=== PATIENT | female | born 2005 | race Caucasian/White ===

== ENCOUNTER 2025-02-13 00:53 | Emergency (ER) | payer OTHER, SELFPAY ==
[2025-02-13 00:54] VITALS: BMI 20.6
--- NOTE | 2025-02-13 01:01 | EDNOTE_ITS ---
ED Female Urogenital RME/HPI General Chief complaint: Urogenital-Female Stated complaint: RECTAL PAIN AND UTI Arrival date/time: 02/13/25 00:53 RME / HPI RME / HPI Narrative: Dr. Morales Template (02/13/25) This section includes all my notes and documentations, including HPI, PE, and ED course. Andrade Morales MD HPI: 19 y/o female with Hx of Hemorrhoids presents to ED c/o dysuria, urinary frequency and urgency, vomiting, and lower back pain x about 2 weeks. Denies any fever. Rectal pain feels same as when she was and had hemorrhoids. Denies possibility of and reports she is currently on her period. No other complaints. ROS: All negative except as documented in HPI. Physical Exam: General: Alert and oriented. No acute distress when remaining still. Eyes: Conjunctivae and lids clear. ENT: No nasal congestion. Neck: Supple. Heart: RRR. Lungs: No respiratory distress. Good air movement. No rhonchi, wheezing, rales. Abdomen: Soft with equivocal tenderness, difficult to localize. Normal bowel sounds. No distension. No rebound or guarding. Back: No CVA tenderness. Skin: Warm and dry. Neuro: Alert and oriented X 3. Rectal: Obvious external hemorrhoids noted, varying size and shape, non thrombosed. 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 Abdomen/Pelvis CT report is pending. Blood tests and urine tests unremarkable. Treatment here included: IV fluid, Toradol, Zofran. Prior to return of all diagnostic test results, patient left AMA. Andrade Morales MD Last Menstrual Period: 02/13/25 EDC: 11/20/25 Related Data Previous Rx's ?Medication ?Instructions ?Recorded cephalexin 500 mg capsule 500 mg PO QID #40 caps 04/16 doxycycline hyclate 100 mg capsule 100 mg PO BID #20 c aps 04/16/22 doxycycline hyclate 100 mg capsule 100 mg PO BID #14 c aps 05/21/22 acetaminophen 325 mg tablet 650 mg (2 x 325 mg) PO Q4H #20 tabs 11/16/22 (Tylenol) diphenhydramine HCl 25 mg capsule 25 mg PO TID PRN all ergy symptoms 11/16/22 (Benadryl) #20 caps loratadine 10 mg tablet 10 mg PO QDAY #30 tabs 11/16 hydrocortisone acetate 25 mg 25 mg NJ BID 14 days #28 ea 02/13/25 rectal suppository (Anusol-HC) Allergies Allergy/AdvReac Type Severity Reaction Status Date / Time latex Allergy BURN Verified 02/13/25 00:54 Review of Systems Review of Systems Systems Reviewed: All systems reviewed, normal except as documented Past Medical History Past Medical History GASTROINTESTINAL: Positive Hemorrhoids Surgical History SURGICAL: Positive Section Social History SMOKING STATUS: Current every day smoker ED Exam Narrative Physical exam: Refer to HPI above Course Quality Measures none Orders Category Date Time Status Saline [Insert IV] NOW Care 02/13/25 01:[address] abdomen pelvis wo con Stat Exams 02/13/25 01:47 Taken Amylase Stat Lab 02/13/25 02:00 Completed Bilirubin,Direct Stat Lab 02/13/25 02:00 Completed CBC Stat Lab 02/13/25 02:00 Completed CMP [Comprehensive Metabolic Panel] Stat Lab 02/13/25 02:00 Completed HCG Qualitative,Urine Stat Lab 02/13/25 01:20 Completed Lipase Stat Lab 02/13/25 02:00 Completed Magnesium Stat Lab 02/13/25 02:00 Completed UA, C/S IF [Urinalysis, C/S if Indicated] Stat Lab 02/13/25 01:20 Completed Ketorolac Inj [Toradol Inj] Med 02/13/25 01:46 Discontinued 30 mg IVP X1 ONE Ondansetron Inj [Zofran Inj] Med 02/13/25 01:46 Discontinued 4 mg IVP X1 ONE Sodium Chloride 0.9% 1000 ml [Ns] 1,000 ml Med 02/13/25 01:46 Discontinued IV 999 mls/hr Vital Signs Vital signs: Vital Signs Temperature 98.6 F 02/13/25 01:08 Pulse Rate 86 02/13/25 01:08 Respiratory Rate 19 02/13/25 01:08 Blood Pressure 113/85 H 02/13/25 01:08 Pulse Oximetry (%) 96 02/13/25 01:08 Oxygen Delivery Method Room Air 02/13/25 01:08 Urogenital - Female MDM Narrative MDM Narrative:: Scribe Attestation: I, Kiesha Marley, am scribing for and in the presence of Dr. Morales. Provider Notation: Although this document has been carefully reviewed, there may still be some phonetic and other typographical errors.? These errors are purely grammatical due to imperfections in the software program and should not be construed in any way to? compromise the substance of the patient's medical care during this visit. 19 y/o female with Hx of Hemorrhoids presents to ED c/o dysuria, urinary frequency and urgency, vomiting, and right lower back pain x about 2 weeks. Denies any fever. In addition, patient also complains of pain to the anal area. She states that it feels that same as when she was and had hemorrhoids. Denies possibility of and reports she is currently on her period. No other complaints. Patient data External records reviewed:: [facility] previous records (Reviewed prior ED records from 05/16/23. Patient was seen for Normal ear exam.) Clinical information provided by:: patient Social determinants that could affect healthcare access:: none Patient has the following chronic illnesses:: Hemorrhoids How is presenting disease/condition affected by chronic disease/condition?: exacerbated by Evaluation data The following diagnostics were reviewed and interpreted by me:: lab results Lab and/or radiology exams considered but not ordered:: None Interpretation Summary: Patient left AMA prior to complete diagnostic test results. Medications / Prescriptions Medications or Prescriptions considered but not ordered:: None Medication administrations:: Medication Administration History Discontinued Medications Sodium Chloride (Ns) 1,000 mls @ 999 mls/hr IV .Q1H1M ONE Stop: 02/13/25 02:46 Last Infusion: 02/13/25 03:05 Dose: Infused Documented By: Admin: 02/13/25 01:58 Dose: 999 mls/hr Documented By: SUSY Ketorolac Tromethamine (Ketorolac Inj 30 Mg/Ml Vial) 30 mg IVP X1 ONE Stop: 02/13/25 01:47 Last Admin: 02/13/25 01:57 Dose: 30 mg Documented By: SUSY Ondansetron HCl (Ondansetron Inj 2 Mg/Ml Inj 2 Ml) 4 mg IVP X1 ONE; Protocol Stop: 02/13/25 01:47 Last Admin: 02/13/25 01:56 Dose: 4 mg Documented By: SUSY IV fluid, Toradol, Zofran. Consultations Consultation(s) initiated? (list below): No Diagnosis Urogenital Female Differential Diagnosis: urinary tract infection, bacterial vaginosis, trichomoniasis, cervicitis, ovarian cyst, vaginitis, ruptured ovarian cyst, cyst of Bartholin's gland, cystitis, dysmenorrhea and other (Hemorrhoid, Anal fissure) Most likely diagnosis given after review of the tests above:: Patient left AMA prior to complete diagnostic test results. Admission Indicated Admission indicated?: not indicated Explain why admission is indicated or not indicated:: Patient left AMA prior to complete diagnostic test results. Admission Request Was there a request for admission?: No Disposition Plan Disposition Plan: other (specify) (Patient left AMA prior to complete diagnostic test results.) Discharge Plan Plan Patient Disposition: Left Against Medical Advice Prescriptions/Referrals Prescriptions/Med Rec: New hydrocortisone acetate [Anusol-HC] 25 mg suppository 25 mg NJ BID 14 Days Qty: 28 0RF No Action cephalexin 500 mg capsule 500 mg PO QID Qty: 40 0RF doxycycline hyclate 100 mg capsule 100 mg PO BID Qty: 20 0RF doxycycline hyclate 100 mg capsule 100 mg PO BID Qty: 14 0RF diphenhydramine HCl [Benadryl] 25 mg capsule 25 mg PO TID PRN (Reason: allergy symptoms) Qty: 20 0RF loratadine 10 mg tablet 10 mg PO QDAY Qty: 30 0RF acetaminophen [Tylenol] 325 mg tablet 650 mg PO Q4H Qty: 20 0RF Referrals: No Primary/Family,Physician [Primary Care Provider] - In 1 week Problem List Clinical Impression: Dysuria, Abdominal pain, Hemorrhoids Patient/Caregiver Discharge Instructions Print Language: Azeri
[2025-02-13 01:08] VITALS: BP 113/85; PULSE 86; RESP 19; TEMP 37; O2SAT 96
[2025-02-13 01:25] LABS: Collection Type, Urine Clean Catch
[2025-02-13 01:34] LABS: Bilirubin,Urine Negative (Negative); Blood,Urine 3+ (Negative); Clarity,Urine Clear (Clear/Hazy); Color,Urine Yellow (Lt Yel-Yel); Culture Indicated,Urine Not Indicated; Glucose, Urine Negative (Negative); HCG Qualitative,Urine Negative; Ketones,Urine Negative (Negative); Leukocyte Esterase,Urine Negative (Negative); Nitrite,Urine Negative (Negative); PH,Urine 6.5 (5.0-7.0); Protein,Urine Negative (Neg - Trace); RBC,Urine 16 /hpf (0-3); Specific Gravity,Urine 1.024 (1.001-1.035); Squamous Epithelial Cell,Urine 1 /hpf (0-5); Urobilinogen,Urine Negative mg/dL (0.0-1.0); WBC,Urine 4 /hpf (0-5)
--- NOTE | 2025-02-13 01:47 | XR_ITS ---
Examination: CT abdomen and pelvis without contrast. Coronal 3-D reconstructions. Sagittal 2-D reconstructions. Date and time of exam:February 13, 2025 0315 hours INDICATIONS: Generalized abdominal pain today CTDI: vol (mGy): 5 DLP: (mGycm): 277 Technique: Axial images of the abdomen have been obtained, 3 mm slice thickness Intravenous contrast material has not been administered. Low dose protocols were performed. One or more of the following dose reduction techniques were used; automated exposure control, adjustment of the mA and/or KV according to patient size, use of iterative reconstruction technique. Findings: No focal liver or splenic lesions No gallstones No pancreatic or adrenal mass No renal or ureteral calculi, no hydronephrosis Normal appendix Small lymph nodes in the mesentery No bowel obstruction Retroverted uterus Bladder intact Osseous structures intact IMPRESSION: Normal appendix No renal or ureteral calculi, no hydronephrosis No bowel obstruction or diverticulitis
[2025-02-13] MEDS: ONDANSETRON INJ 2 MG/ML INJ 2 ML 4 MG IVP (01:56)
[2025-02-13] MEDS: KETOROLAC INJ 30 MG/ML VIAL IVP (01:57)
[2025-02-13] MEDS: SODIUM CHLORIDE 0.9% 1000 ML 1,000 ML 999 ML IV (01:58)
[2025-02-13 02:36] LABS: Basophils # (Auto) 0.1 Thou/mm3 (0.0-0.2); Basophils % (Auto) 1 % (0-2.5); Eosinophils % (Auto) 12 % (0-10); Hematocrit 38.7 % (36.0-46.0); Immature Granulocytes % (Auto) 0 % (0-0); Immature Granulocytes Auto 0.01 Thou/mm3 (0.00-0.00); Lymphocytes # (Auto) 3.5 Thou/mm3 (1.0-4.8); Lymphocytes % (Auto) 43 % (10-50); Mean Corpuscular HGB Conc 36.2 g/dl (31.0-37.0); Mean Corpuscular Hemoglobin 32.3 pg (25.0-35.0); Mean Corpuscular Volume 89 fL (80-100); Monocytes # (Auto) 0.7 Thou/mm3 (0.0-0.8); Monocytes % (Auto) 8 % (0-12); Neutrophils % (Auto) 36 % (37-80); Nucleated Red Blood Cell % 0 /100 WBC (0); Platelet Count 321 Thou/mm3 (140-440); RDW Standard Deviation 39.5 fL (36.4-46.3); Red Blood Count 4.33 Miln/mm3 (4.00-5.20); White Blood Count 8.2 Thou/mm3 (3.6-11.0)
[2025-02-13 03:17] LABS: Alanine Aminotransferase 10 U/L (10-49); Albumin, Serum 4.6 gm/dL (3.5-5.0); Albumin/Globulin Ratio 1.8 (1.2-2.2); Alkaline Phosphatase 93 U/L (46-116); Amylase 79 U/L (30-118); Anion Gap 11 (7-16); Aspartate Amino Transferase 21 U/L (0-34); BUN/Creatinine Ratio 8 Ratio (12-20); Bilirubin,Direct < 0.1 mg/dL (0.0-0.3); Bilirubin,Total 0.2 mg/dL (0.3-1.2); Blood Urea Nitrogen 6 mg/dL (9-23); Calcium 8.8 mg/dL (8.3-10.6); Calcium (Corrected) 8.8 mg/dL (8.5-10.1); Carbon Dioxide 26.8 mMol/L (20.0-31.0); Chloride 106 mMol/L (98-107); Creatinine (Component) 0.8 mg/dL (0.6-1.3); Globulin 2.6 gm/dL (2.3-3.5); Glucose 82 mg/dL (74-106); Lipase 30 U/L (12-53); Magnesium 1.9 mg/dL (1.6-2.6); Osmolality,Calculated 283 (275-295); Potassium 3.8 mMol/L (3.4-5.1); Sodium 144 mMol/L (136-145); Total Protein 7.2 gm/dL (5.7-8.2); eGFR > 60 See Note
--- NOTE | 2025-02-13 04:00 | PC.NURSE ---
PATIENT SIGNED AMA FORM DUE TO NOT WANTING TO WAIT FOR RESULTS. PATIENT STATED, SHE HAD A NO CHILDCARE AND NEEDED TO GO HOME AND SHE WOULD GO TO PCP TOMORROW. PROVIDER DR. BROOKS WAS NOTIFIED.
--- NOTE | 2025-02-13 04:17 | PRELIM_ITS ---
CT scan of the abdomen and pelvis without intravenous contrast (axial sections with sagittal and coronal reformats) February 13, 2025 at 0315 hours Clinical History: Abdominal pain. Comparison: No prior study is available for comparison. Findings: The lung bases are clear. The gallbladder is contracted. The liver, pancreas, spleen, kidneys and adrenals are unremarkable on this noncontrast study. No evidence of bowel obstruction. The appendix is within normal limits (images [id number]). A moderate amount of fecal material is present in the colon. There are multiple prominent mesenteric lymph node. The urinary bladder is unremarkable. There is no free fluid or free air. The osseous structures are unremarkable. Impression: No evidence of appendicitis, bowel obstruction, free air or abscess. Multiple prominent mesenteric lymph node. Recommend clinical correlation and follow-up. Report Electronically Signed By: David Banks 02/13/2025 4:17:31 AM [EST]
== END 2025-02-13 04:02 | disposition left against medical advice (07) ==
PROVIDERS: Emergency Provider Emergency Medicine
DX: K64.4 Residual hemorrhoidal skin tags (principal); R10.84 Generalized abdominal pain; R30.0 Dysuria; Z53.29 Procedure and treatment not carried out because of patient's decision for other reasons
CPT/HCPCS: 36415; 74176; 80053; 81001; 81025; 82150; 82248; 83690; 83735; 85025; 96361; 96374; 96375; 99284; J1885; J2405; J7030